=== PATIENT | female | born 1990 | race Hispanic/Latino ===

== ENCOUNTER 2019-03-12 10:43 | Emergency (ER) | payer OTHER, SELFPAY ==
--- NOTE | 2019-03-12 11:35 | CT ---
Head CT without contrast 03/12/2019: COMPARISON: None HISTORY: Fever and headache TECHNIQUE: Axial CT imaging at 5 mm intervals from vertex through skull base without contrast FINDINGS: Mild mucosal thickening of the sphenoid sinus and maxillary sinus noted on the right. [place] structures demonstrate no acute findings. No intracranial hemorrhage, midline shift, mass effect, or ventricular enlargement. IMPRESSION: No acute findings.
[2019-03-12 11:49] LABS: #Basophils 0.1 thou/uL (0.0-0.2); #Lymphocytes 1.4 thou/uL (1.20-3.40); #Monocytes 0.6 thou/uL (0.11-0.59); #Neutrophils 7.3 thou/uL (1.40-6.50); %Basophils 0.6 % (0.0-1.0); %Eosinophils 0.2 % (0.0-10.0); %Lymphocytes 15.4 % (21.0-51.0); %Neutrophils 77.8 % (42.0-75.0); Mean Corpuscular Hemoglobin 26.3 pg (27.0-31.0); Mean Corpuscular Volume 82.3 fL (78.0-98.0); Mean Platelet Volume 7.8 fL (7.4-10.4); Platelet Count 261 thou/uL (130-400); RBC Distribution Width 13.5 % (11.5-14.5); Red Blood Cell (RBC) Count 4.57 mill/uL (4.20-5.40); White Blood Cell (WBC) Count 9.4 thou/uL (4.8-10.8)
[2019-03-12 12:16] LABS: ALT (SGPT) 33 U/L (8-55); AST (SGOT) 28 U/L (5-34); Albumin 4.2 g/dL (3.5-5.0); Alkaline Phosphatase 88 U/L (40-150); Anion Gap 12 mmol/L (10-20); BUN (Urea Nitrogen) 10 mg/dL (7.0-18.7); Bilirubin, Total 0.3 mg/dL (0.2-1.2); Calc. Creatinine Clearance 0 mL/min (70-130); Calcium 9.3 mg/dL (7.8-10.44); Carbon Dioxide 26 mmol/L (22-29); Chloride 102 mmol/L (98-107); Estimated GFR-MDRD 73; Globulin 3.4 g/dL (2.4-3.5); Glucose 138 mg/dL (70-105); Potassium 3.5 mmol/L (3.5-5.1); Protein, Total 7.6 g/dL (6.0-8.3); Sodium 136 mmol/L (136-145)
[2019-03-12] MEDS ORDERED: Lorazepam 2 MG/ML VIAL ONE (12:32)
[2019-03-12] MEDS ORDERED: Ketorolac Tromethamine 30 MG/ML VIAL ONE (12:33)
[2019-03-12 13:10] LABS: BHCG - Serum Negative (NEGATIVE); Pregs Control Background? CLEAR/WHITE (CLR/WHITE); Pregs Control Bar Appear? YES (CONTROL BAR)
[2019-03-12] MEDS ORDERED: Acetaminophen 500 MG TAB ONE (13:16)
--- NOTE | 2019-03-12 14:18 | RAD ---
Portable frontal chest radiograph: 03/12/2019 COMPARISON: None HISTORY: Fever, headache FINDINGS: Lungs are clear. Heart and mediastinal contours appear within normal limits. IMPRESSION: No acute findings.
== END 2019-03-12 14:50 | disposition home or self-care (01) ==
LOC: ERS 10:43
DX: J10.1 Influenza due to other identified influenza virus with other respiratory manifestations (principal)
CPT/HCPCS: 36415; 70450; 71045; 80053; 84484; 84703; 85025; 87804; 93005; 96361; 96374; 96375; J1885; J2060

== ENCOUNTER 2022-07-06 19:41 | Emergency (ER) | payer SELFPAY | END 2022-07-06 22:35 | disposition home or self-care (01) | LOC: ERS 19:41 | DX: G51.0 Bell's palsy (principal); R51.9 Headache, unspecified | CPT/HCPCS: 36416; 70450 ==

== ENCOUNTER 2022-11-22 08:40 | Outpatient (CLI) | payer SELFPAY | END 2022-11-22 08:41 | disposition home or self-care (01) | LOC: NM 08:40 | PROVIDERS: ATTEND Family Medicine | DX: R79.89 Other specified abnormal findings of blood chemistry (principal); E05.00 Thyrotoxicosis with diffuse goiter without thyrotoxic crisis or storm | CPT/HCPCS: 78014; A9509 ==